=== PATIENT | male | born 1990 | race Caucasian/White ===

== ENCOUNTER 2020-04-17 03:46 | Emergency (ER) | payer OTHER ==
[~2020-04-17] VITALS: Ht 185.4 cm; Wt 132.0 kg
[2020-04-17 03:54] VITALS: Ht 185.4 cm; Wt 132.0 kg
[2020-04-17 11:03] VITALS: BP 142/59
== END 2020-04-17 11:13 | disposition home or self-care (01) ==
LOC: ED 03:46
DX: F32.9 Major depressive disorder, single episode, unspecified (principal)